=== PATIENT | female | born 1950 | race Two or more races ===

== ENCOUNTER 2022-05-25 14:53 | Emergency (ER) | payer MEDICARE, OTHER ==
[~2022-05-25] VITALS: Ht 149.9 cm; Wt 44.5 kg
[2022-05-25 15:18] VITALS: BP 126/62
[2022-05-25] MEDS ORDERED: ACETAMINOPHEN 325 MG TAB PO ONE (17:15)
== END 2022-05-25 17:16 | disposition left against medical advice (07) ==
LOC: EDBD 14:53 → ER 14:53
DX: S20.211A Contusion of right front wall of thorax, initial encounter (principal); S90.122A Contusion of left lesser toe(s) without damage to nail, initial encounter; V43.62XA Car passenger injured in collision with other type car in traffic accident, initial encounter; Y93.89 Activity, other specified; Y92.89 Other specified places as the place of occurrence of the external cause; Y99.8 Other external cause status
CPT/HCPCS: 71045; 93005